=== PATIENT | male | born 1955 | race Two or more races ===

== ENCOUNTER 2019-03-20 00:50 | Emergency (ER) | payer MEDICAID ==
[~2019-03-20] VITALS: Ht 172.7 cm; Wt 90.7 kg
[2019-03-20 01:37] VITALS: BP 141/93
== END 2019-03-20 02:53 | disposition left against medical advice (07) ==
LOC: ER 01:00
DX: R49.8 Other voice and resonance disorders (principal); Z53.21 Procedure and treatment not carried out due to patient leaving prior to being seen by health care provider

== ENCOUNTER 2021-09-26 15:00 | Emergency (ER) | payer OTHER, MEDICAID ==
[~2021-09-26] VITALS: Ht 175.3 cm; Wt 86.2 kg
[2021-09-26] MEDS ORDERED: IBU600T PO (17:50)
[2021-09-26] MEDS ORDERED: HYDROcodone-ACET 10/325MG TAB PO ONE (18:00)
[2021-09-26 18:28] VITALS: BP 130/80
== END 2021-09-26 18:27 | disposition home or self-care (01) ==
LOC: ER 15:00
DX: S22.32XA Fracture of one rib, left side, initial encounter for closed fracture (principal); I10 Essential (primary) hypertension; W22.8XXA Striking against or struck by other objects, initial encounter; Y93.89 Activity, other specified; Y92.89 Other specified places as the place of occurrence of the external cause; Y99.8 Other external cause status
CPT/HCPCS: 71250